=== PATIENT | male | born 1950 | race Caucasian/White ===

== ENCOUNTER 2016-06-26 07:08 | Day surgery (SDC) | payer MEDICAID ==
[2016-06-23 08:37] VITALS: BMI 36.6
[~2016-06-26 07:08] MED LIST: LACTATED RINGERS 1,000 ML IV SCH
[2016-06-26 07:24] VITALS: RESP 18; TEMP 97.8
[2016-06-26] MEDS ORDERED: LACTATED RINGERS 1,000 ML IV ONE (07:27)
[2016-06-26] MEDS ORDERED: PROPOFOL 10 MG/ML 20 ML VIAL IV ONE (07:51)
--- NOTE | 2016-06-26 08:18 | P.PCN ---
Date of Procedure: 06/26/16 Procedure(s) Performed: Procedure: Colonoscopy and biopsy. Preoperative diagnosis: Screening for neoplasia. Postoperative diagnosis: 1. Diminutive polyp right colon biopsied but no other polyps or tumors seen. 2. Sigmoid diverticulosis with no evidence of acute diverticulitis or strictures. Preparation: HalfLytely prep. Sedation: Was provided by anesthesia. Brief clinical history: The patient is a 66-year-old male who is referred for this evaluation for screening for neoplasia. He has no abdominal complaints, bleeding or anemia. No family history of colon cancer. His last colonoscopy was around 12 years ago. Procedure: With the patient on his left lateral decubitus position and after informed consent and adequate sedation, the perianal area was inspected and it did not show any fissures or fistulas. There were no masses felt on digital rectal examination. The Olympus CFQ 160L video colonoscope was then inserted in the rectum in the usual fashion and advanced to the cecum. The preparation was less than ideal as there was some solid fecal debris and small fecal material that could not be suctioned totally. The mucosa appeared healthy. There was a diminutive polyp in the proximal right colon which I biopsied but there were no large polyps or tumors. Multiple diverticular orifices were seen scattered in the sigmoid with no evidence of acute diverticulitis or strictures. I retroflexed the endoscope in the rectum before the endoscope was withdrawn. Low-grade internal hemorrhoids were noted but there was no bleeding. The patient tolerated the procedure well. Plan: The patient was reassured. Discussed dietary measures. In light of his less than ideal preparation and the finding of a diminutive polyp on the right colon, I recommended repeat exam in 5 years. He will follow up with you as planned.
[2016-06-26 08:54] VITALS: BP 149/102; PULSE 40
== END 2016-06-26 09:18 | disposition home or self-care (01) ==
LOC: ORWHC2ENDO 07:08
DX: Z12.11 Encounter for screening for malignant neoplasm of colon (principal); D12.2 Benign neoplasm of ascending colon; K57.30 Diverticulosis of large intestine without perforation or abscess without bleeding; K64.8 Other hemorrhoids; I10 Essential (primary) hypertension; Z79.82 Long term (current) use of aspirin; Z79.899 Other long term (current) drug therapy
CPT/HCPCS: 88305; 45380; J2704

== ENCOUNTER → 2016-11-16 | Outpatient (CLI) | payer MEDICAID ==
[2016-11-16 07:50] LABS: Appearance,Urine Clear (Clear); Bilirubin,Urine Negative (Negative); Glucose,Urine (UA) Negative (Negative); Ketones,Urine Negative (Negative); Leukocyte Esterase,Urine Negative (Negative); Nitrite,Urine Negative (Negative); PH, Urine 6.5 (5.0-8.0); Protein,Urine Negative (Negative); Specific Gravity,Urine 1.006 (1.001-1.035); UA Billing (MACRO vs. MICRO) CHEM; Urobilinogen,Urine <2.0 mg/dL (<2.0)
[2016-11-16 07:51] LABS: Basophils % (A) 0 %; CH 32.8; CHCM 34.3; Eosinophils # (A) 0.1 k/uL (0-0.7); Eosinophils % (A) 2 %; HCT 45.1 % (39.0-53.0); HDW 2.66; HGB 14.9 gm/dL (13.0-17.5); Luc # (Auto) 0.09; Luc % (Auto) 2; Lymphocytes # (A) 1.1 k/uL (1.0-4.8); Lymphocytes % (A) 20 %; MCH 31.6 pg (25.0-35.0); MCHC 32.9 g/dL (31.0-37.0); Monocytes # (A) 0.4 k/uL (0-1.0); Monocytes % (A) 7 %; Neutrophils # (A) 3.9 k/uL (1.3-7.7); Neutrophils % (A) 70 %; WBC 5.6 k/uL (3.8-10.6); WBC (Perox) 5.89
[2016-11-16 12:27] LABS: Hemoglobin A1C 5.2 % (4.2-6.1)
[2016-11-16 14:10] LABS: ALT 34 U/L (21-72); AST 27 U/L (17-59); Alkaline Phosphatase 86 U/L (38-126); Anion Gap 12 mmol/L; Blood Urea Nitrogen 16 mg/dL (9-20); Calcium 9.2 mg/dL (8.4-10.2); Carbon Dioxide 22 mmol/L (22-30); Chloride 109 mmol/L (98-107); Cholesterol 143 mg/dL (<200); Creatine Kinase 193 U/L (55-170); Glucose 106 mg/dL (74-99); HDL Cholesterol 35 mg/dL (40-60); Non-African American GFR(MDRD) >60 (>60 ml/min/1.73 sqM); Sodium 143 mmol/L (137-145); Total Bilirubin 0.6 mg/dL (0.2-1.3); Total Protein 6.5 g/dL (6.3-8.2)
[2016-11-16 14:41] LABS: Prostate Specific Antigen 0.27 ng/mL (0.00-4.00)
== END | disposition home or self-care (01) ==
LOC: LABWHC1 07:21
PROVIDERS: ATTEND Internal Medicine
DX: I10 Essential (primary) hypertension (principal); E78.00 Pure hypercholesterolemia, unspecified; E66.9 Obesity, unspecified; N40.0 Benign prostatic hyperplasia without lower urinary tract symptoms
CPT/HCPCS: 36415; 80053; 80061; 81003; 82550; 83036; 84153; 84439; 84443; 84550; 85025

== ENCOUNTER → 2018-04-19 | Outpatient (CLI) | payer MEDICARE ==
[2018-04-19 09:36] LABS: Basophils % (A) 0 %; Eosinophils # (A) 0.1 k/uL (0-0.7); Eosinophils % (A) 2 %; HCT 45.6 % (39.0-53.0); HGB 15.3 gm/dL (13.0-17.5); Lymphocytes # (A) 0.9 k/uL (1.0-4.8); Lymphocytes % (A) 16 %; MCH 31.6 pg (25.0-35.0); MCHC 33.5 g/dL (31.0-37.0); MCV 94.4 fL (80.0-100.0); Mean Platelet Volume 8.8; Monocytes # (A) 0.6 k/uL (0-1.0); Monocytes % (A) 11 %; Neutrophils # (A) 3.9 k/uL (1.3-7.7); Neutrophils % (A) 69 %; Platelet Count 156 k/uL (150-450); RBC 4.83 m/uL (4.30-5.90); RDW 13.3 % (11.5-15.5); WBC 5.6 k/uL (3.8-10.6)
[2018-04-19 16:27] LABS: Albumin 4.3 g/dL (3.80-4.90); Albumin/Globulin Ratio 1.87 (1.20-2.10); Anion Gap 9.3 mmol/L (4.00-12.00); Calcium 9.1 mg/dL (8.7-10.3); Carbon Dioxide 25.7 mmol/L (21.6-31.8); Globulin 2.3 g/dL (1.6-3.3); LDL Cholesterol,Calculated 127.4 mg/dL (0.0-131.0); Potassium 4.3 mmol/L (3.5-5.5); Total Bilirubin 0.8 mg/dL (0.2-1.2); Total Protein 6.6 g/dL (6.2-8.2); Uric Acid 6.5 mg/dL (3.7-8.7); VLDL Calculation 15.6 mg/dL (5.00-40.00)
[2018-04-19 16:34] LABS: T4, Free (Free Thyroxine) 1.2 ng/dL (0.80-1.80)
[2018-04-19 17:37] LABS: Hemoglobin A1C 5.1 % (4.0-6.0)
== END | disposition home or self-care (01) ==
LOC: LABWHC1 09:09
PROVIDERS: ATTEND Nurse Practitioner Family
DX: Z00.00 Encounter for general adult medical examination without abnormal findings (principal); I10 Essential (primary) hypertension; R73.9 Hyperglycemia, unspecified; N40.1 Benign prostatic hyperplasia with lower urinary tract symptoms; E78.00 Pure hypercholesterolemia, unspecified
CPT/HCPCS: 36415; 80053; 80061; 83036; 84153; 84439; 84443; 84550; 85025

== ENCOUNTER → 2018-04-24 | Outpatient (CLI) | payer MEDICARE, OTHER ==
--- NOTE | 2018-04-24 10:53 | US ---
EXAMINATION TYPE: US scrotum with doppler. Grayscale and color Doppler Duplex imaging performed of t jay jay scrotum. DATE OF EXAM: 04/24/2018 COMPARISON: NONE CLINICAL HISTORY: I77.810 Thoracic aortic ectasia, D29.22 Benign. swollen right testicle, no pain EXAM MEASUREMENTS: TESTICLES: Right Testicle: 4.4 x 3.3 x 2.7 cm Left Testicle: 4.7 x 3.3 x 2.9 cm EPIDIDYMIS HEAD: Right Epididymis: Not seen due to fluid collection obscuring anatomy Left Epididymis: 1.5 cm Doppler performed to assess for testicular vascularity; good bilateral color flow and waveforms are s een. There is no evidence of testicular torsion. Presence of hydroceles: YES, extensive bilateral loculated fluid collections Presence of varicoceles: no Unable to image testicles side by side due to extensive loculated fluid collections. IMPRESSION: 1. Extensive loculated fluid collections/hydroceles are noted bilaterally.
--- NOTE | 2018-04-24 11:28 | CT ---
EXAMINATION TYPE: CT angio chest DATE OF EXAM: 04/24/2018 COMPARISON: 11/26/2011 HISTORY: 68-year-old male Thoracic aortic ectasia. Family history of aneurysm. TECHNIQUE: Contiguous axial scanning of the chest performed with IV Contrast, patient injected with 1 00 mL of Isovue 370. Coronal/sagittal MIP reconstructions performed. 3-D reconstructions generated on a dedicated independent workstation. CT DLP: 762 mGycm Automated exposure control for dose reduction was used. FINDINGS: Heart upper limits of normal in size without pericardial effusion. Extensive coronary vessel calcific ations are present. Aortic root measures 4.4 cm versus approximately 4.2 cm in 2012. Ascending aorta measures 4.6 cm versus 4.4 cm in 2012. Proximal arch measures 4.4 cm. Mild atherosclerotic arch calcifications with bovine configuration to the aortic arch. Small 8 mm diverticulum at the origin of what appears to be the bronchial artery. This seems to have been present on the 2011 exam in retrospect. Upper descending thoracic aorta measures 3.2 cm versus 3.2 cm, previously. Lower descending thoracic aorta is ectatic at 2.8 cm versus 2.7 cm, previously. Aorta at the thoracoabdominal junction is ectatic at 2.9 cm versus 2.8 cm, previously. There is a separate origin of the common hepatic artery from the aorta. Additionally, accessory right renal artery is noted. Right and left main pulmonary arteries measure 3.0 and 2.7 cm, respectively. No thoracic lymphadenopathy by CT size criteria. Evaluation of the lungs shows mild diffuse bronchial wall thickening. Subpleural strandy opacity jose alfredo pheral right midlung has increased in the interval suggesting scarring or atelectasis. Stable 7 mm anterior right midlung pulmonary nodule, axial image 61. No consolidation or pleural effu cheikh. Mild diffuse low-density thickening of the bilateral adrenal glands without discrete nodularity. Bones: Scattered small endplate Schmorl's nodes mid to lower thoracic spine. Fatty matrix hemangioma within the T9 vertebral body. No osseous structure process. IMPRESSION: 1. THORACIC AORTIC ANEURYSM (AORTIC ROOT 4.4 CM VERSUS 4.2 CM IN 2012, ASCENDING 4.6 CM VERSUS 4.4 CM , PROXIMAL ARCH 4.4 CM, UPPER DESCENDING 3.2 CM STABLE). 2. ADDITIONAL ECTASIA LOWER DESCENDING THORACIC AORTA UP TO 2.9 CM. INCIDENTAL 8 MM DIVERTICULUM AT T HE ORIGIN OF THE BRONCHIAL ARTERY WAS PRESENT IN 2011. 3. CAD AND PULMONARY ARTERIAL HYPERTENSION. 4. MILD DIFFUSE BRONCHIAL WALL THICKENING SUGGESTS BRONCHITIS OR ASTHMA. 7 MM RIGHT MID LUNG PULMONAR Y NODULE IS STABLE AND BENIGN.
== END ==
LOC: RADUSWWP 09:41
PROVIDERS: ATTEND Internal Medicine
DX: N43.3 Hydrocele, unspecified (principal); I77.810 Thoracic aortic ectasia; I71.2 Thoracic aortic aneurysm, without rupture; I25.10 Atherosclerotic heart disease of native coronary artery without angina pectoris; I27.21 Secondary pulmonary arterial hypertension; R91.1 Solitary pulmonary nodule
CPT/HCPCS: 93975; 76870; 71275; Q9967

== ENCOUNTER → 2018-07-05 | Outpatient (CLI) | payer MEDICARE, OTHER | END | disposition home or self-care (01) | LOC: LABWHC1 09:00 | PROVIDERS: ATTEND Internal Medicine Interventional Cardiology | DX: E78.2 Mixed hyperlipidemia (principal) | CPT/HCPCS: 36415; 80061; 84450; 84460 ==

== ENCOUNTER → 2018-11-18 | Outpatient (CLI) | payer MEDICARE, OTHER ==
[2018-11-18 08:33] LABS: Basophils % (A) 0 %; Eosinophils # (A) 0.1 k/uL (0-0.7); Eosinophils % (A) 2 %; HCT 43.7 % (39.0-53.0); HGB 14.7 gm/dL (13.0-17.5); Lymphocytes # (A) 1.1 k/uL (1.0-4.8); Lymphocytes % (A) 19 %; MCH 31.3 pg (25.0-35.0); MCHC 33.7 g/dL (31.0-37.0); Mean Platelet Volume 8.6; Monocytes # (A) 0.4 k/uL (0-1.0); Monocytes % (A) 7 %; Neutrophils # (A) 4.1 k/uL (1.3-7.7); Neutrophils % (A) 70 %; Platelet Count 150 k/uL (150-450); RDW 15.1 % (11.5-15.5); WBC 5.8 k/uL (3.8-10.6)
[2018-11-18 08:35] LABS: African American GFR (CKD) >90 (>60 ml/min/1.73 sqM); Albumin 3.9 g/dL (3.5-5.0); Anion Gap 7 mmol/L; Blood Urea Nitrogen 21 mg/dL (9-20); Calcium 8.8 mg/dL (8.4-10.2); Carbon Dioxide 25 mmol/L (22-30); Chloride 111 mmol/L (98-107); Glucose 113 mg/dL (74-99); Non-African American GFR(CKD) >90 (>60 ml/min/1.73 sqM); Sodium 143 mmol/L (137-145); Total Bilirubin 0.9 mg/dL (0.2-1.3); Total Protein 6.8 g/dL (6.3-8.2)
[2018-11-18 08:51] LABS: ALT 31 U/L (21-72); AST 37 U/L (17-59); Alkaline Phosphatase 67 U/L (38-126); Magnesium 2.1 mg/dL (1.6-2.3); Potassium 4.4 mmol/L (3.5-5.1)
--- NOTE | 2018-11-18 10:47 | CT ---
EXAMINATION TYPE: CT angio chest DATE OF EXAM: 11/18/2018 COMPARISON: 04/24/2018 HISTORY: Thoracic aortic aneurysm, without rupture CT DLP: 749.9 mGycm, Automated exposure control for dose reduction was used. CONTRAST: Performed injected with 100 mL of Isovue 370. TECHNIQUE: Axial images were obtained at 5 mm thick sections. Reconstructed images are reviewed on Handy computer in the coronal plane. FINDINGS: Portion of the thyroid visualized is normal. There is an area of pleural thickening along the right upper lateral chest measuring 1.0 cm. Series 5 image 24. There is a nodule at the same level measuring 0.5 cm. No enlarged mediastinal or hilar adenopathy is evident. The ascending aorta diameter at the level o f the main pulmonary artery is 4.8 cm. The main pulmonary artery diameter at the bifurcation is 2.7 cm. Artery calcification is present. The aortic arch transverse dimension is 2.7 cm. The descending thoracic aorta measures 3.2 cm. At the level of the diaphragm the aorta measures 2.[address] sections are obtained through the upper abdomen. Abdomen is essentially unremarkable. IMPRESSIONS: 1. Aneurysmal dilatation of the ascending aorta measuring 4.8 cm at the level of the main pulmonary a rtery. 2. 0.5 cm nodule right upper lobe, stable
[2018-11-18 19:32] LABS: Hemoglobin A1C 5.5 % (4.0-6.0)
== END | disposition home or self-care (01) ==
LOC: RADCTMAIN 07:41
PROVIDERS: ATTEND Surgery
DX: I71.2 Thoracic aortic aneurysm, without rupture (principal); R91.1 Solitary pulmonary nodule
CPT/HCPCS: 84439; 80061; 80053; 83735; 84443; 85025; 83036; 71275; 36415; Q9967

== ENCOUNTER → 2019-04-24 | Outpatient (CLI) | payer MEDICARE, OTHER ==
[2019-04-24 09:46] LABS: Basophils % (A) 0 %; Eosinophils # (A) 0.1 k/uL (0-0.7); Eosinophils % (A) 2 %; HCT 43.3 % (39.0-53.0); HGB 14.2 gm/dL (13.0-17.5); Lymphocytes # (A) 1.1 k/uL (1.0-4.8); Lymphocytes % (A) 20 %; MCH 31.1 pg (25.0-35.0); MCHC 32.8 g/dL (31.0-37.0); MCV 94.6 fL (80.0-100.0); Mean Platelet Volume 9.3; Monocytes # (A) 0.4 k/uL (0-1.0); Monocytes % (A) 8 %; Neutrophils # (A) 3.7 k/uL (1.3-7.7); Neutrophils % (A) 69 %; Platelet Count 151 k/uL (150-450); RBC 4.58 m/uL (4.30-5.90); RDW 12.7 % (11.5-15.5); WBC 5.4 k/uL (3.8-10.6)
[2019-04-24 09:54] LABS: Appearance,Urine Clear (Clear); Bilirubin,Urine Negative (Negative); Blood,Urine Negative (Negative); Color,Urine Yellow; Glucose,Urine (UA) Negative (Negative); Ketones,Urine Negative (Negative); Leukocyte Esterase,Urine Negative (Negative); Nitrite,Urine Negative (Negative); Protein,Urine Negative (Negative); Urobilinogen,Urine <2.0 mg/dL (<2.0)
[2019-04-24 16:38] LABS: African American GFR (CKD) 107.1 (60.0-200.0); Albumin 4.2 g/dL (3.80-4.90); Albumin/Globulin Ratio 2.21 (1.60-3.17); Anion Gap 5.6 mmol/L (4.00-12.00); Carbon Dioxide 27.4 mmol/L (21.6-31.8); Chol/HDL Ratio 2.94; Globulin 1.9 g/dL (1.6-3.3); LDL Cholesterol,Calculated 53.8 mg/dL (0.0-131.0); Magnesium 1.9 mg/dL (1.5-2.4); Non-African American GFR(CKD) 92.4 (60.0-200.0); Potassium 3.9 mmol/L (3.5-5.5); Total Bilirubin 0.9 mg/dL (0.3-1.2); Total Protein 6.1 g/dL (6.2-8.2); Uric Acid 4.9 mg/dL (3.7-8.7); VLDL Calculation 14.2 mg/dL (5.00-40.00)
[2019-04-24 16:46] LABS: T4, Free (Free Thyroxine) 1.3 ng/dL (0.80-1.80)
[2019-04-24 19:08] LABS: Hemoglobin A1C 5.2 % (4.0-6.0)
== END | disposition home or self-care (01) ==
LOC: LABWHC1 09:05
PROVIDERS: ATTEND Internal Medicine
DX: I10 Essential (primary) hypertension (principal); N40.0 Benign prostatic hyperplasia without lower urinary tract symptoms; E78.5 Hyperlipidemia, unspecified
CPT/HCPCS: 36415; 80053; 80061; 81003; 82550; 83036; 83735; 84153; 84439; 84443; 84550; 85025

== ENCOUNTER → 2019-10-27 | Outpatient (CLI) | payer MEDICARE, OTHER ==
[2019-10-27 09:24] LABS: Basophils % (A) 0 %; Eosinophils # (A) 0.1 k/uL (0-0.7); Eosinophils % (A) 2 %; HCT 42.8 % (39.0-53.0); HGB 13.7 gm/dL (13.0-17.5); Lymphocytes # (A) 1.2 k/uL (1.0-4.8); Lymphocytes % (A) 19 %; MCH 30.6 pg (25.0-35.0); MCHC 32.1 g/dL (31.0-37.0); MCV 95.5 fL (80.0-100.0); Mean Platelet Volume 8.6; Monocytes # (A) 0.4 k/uL (0-1.0); Monocytes % (A) 7 %; Neutrophils # (A) 4.5 k/uL (1.3-7.7); Neutrophils % (A) 70 %; Platelet Count 155 k/uL (150-450); RBC 4.48 m/uL (4.30-5.90); WBC 6.3 k/uL (3.8-10.6)
[2019-10-27 20:32] LABS: African American GFR (CKD) 102.1 (60.0-200.0); Albumin/Globulin Ratio 1.74 (1.60-3.17); BUN/Creat Ratio 25.56 Ratio (12.00-20.00); Calcium 8.7 mg/dL (8.7-10.3); Chol/HDL Ratio 2.63; Globulin 2.3 g/dL (1.6-3.3); LDL Cholesterol,Calculated 46.2 mg/dL (0.0-131.0); Non-African American GFR(CKD) 88.1 (60.0-200.0); Potassium 4.4 mmol/L (3.5-5.5); Total Bilirubin 0.7 mg/dL (0.2-1.2); Total Protein 6.3 g/dL (6.2-8.2); VLDL Calculation 10.8 mg/dL (5.00-40.00)
== END ==
LOC: LABWHC1 08:15
PROVIDERS: ATTEND Internal Medicine
DX: I10 Essential (primary) hypertension (principal); E78.2 Mixed hyperlipidemia
CPT/HCPCS: 36415; 80053; 80061; 84443; 85025

== ENCOUNTER → 2019-11-11 | Outpatient (CLI) | payer MEDICARE, OTHER ==
[2019-11-11 09:27] LABS: African American GFR (CKD) >90 (>60 ml/min/1.73 sqM); Blood Urea Nitrogen 26 mg/dL (9-20); Non-African American GFR(CKD) >90 (>60 ml/min/1.73 sqM)
--- NOTE | 2019-11-11 12:43 | CT ---
EXAMINATION TYPE: CT angio chest DATE OF EXAM: 11/11/2019 COMPARISON: CTA chest November 18, 2018. HISTORY: Thoracic aortic aneurysm CT DLP: 1360 mGycm. Automated Exposure Control for Dose Reduction was Utilized. CONTRAST: CTA scan of the thorax is performed without and with IV Contrast, patient injected with 100 ml mL of Isovue 370, aneurysm protocol. 3-D reconstructed Images are created on independent workstation and r eviewed. FINDINGS: LUNGS: The lungs are grossly clear, there is no new concerning parenchymal mass or nodule identified. Stable 7 x 5 mm nodule anteromedial right upper lung axial image 23. There is no new pleural effusi on or pneumothorax seen bilaterally. The tracheobronchial tree is patent. MEDIASTINUM: There is persist ascending aortic aneurysm measuring up to 4.5 cm axial image 23 no sign ificant change from last 2 studies. Bovine type aortic arch redemonstrated with mild calcified plaque . Some tortuous course to the distal thoracic aorta without aneurysmal extension. Accessory right re nal artery redemonstrated There are no new greater than 1 cm hilar or mediastinal lymph nodes. No c ardiomegaly or pericardial effusion is seen. Severe three-vessel Coronary artery calcification is aga in seen. OTHER: Stable low dense thickening to both adrenal glands consistent with benign lipid rich hyperplas ia. Persistent hemangioma involving T9 vertebra. IMPRESSION: Stable 4.5 cm ascending aortic aneurysm.
== END | disposition home or self-care (01) ==
LOC: RADCTMAIN 08:44
PROVIDERS: ATTEND Surgery
DX: I71.2 Thoracic aortic aneurysm, without rupture (principal)
CPT/HCPCS: 82565; 84520; 71275; 36415; Q9967

== ENCOUNTER → 2020-07-13 | Outpatient (CLI) | payer MEDICARE ==
[2020-07-13 19:07] LABS: African American GFR (CKD) 112.4 (60.0-200.0); Albumin 4.2 g/dL (3.80-4.90); Albumin/Globulin Ratio 2.21 (1.60-3.17); Anion Gap 9.2 mmol/L (4.00-12.00); Calcium 8.9 mg/dL (8.7-10.3); Carbon Dioxide 22.8 mmol/L (21.6-31.8); Chol/HDL Ratio 3.06; Globulin 1.9 g/dL (1.6-3.3); Potassium 3.8 mmol/L (3.5-5.5); Total Bilirubin 0.8 mg/dL (0.3-1.2); Total Protein 6.1 g/dL (6.2-8.2)
== END | disposition home or self-care (01) ==
LOC: LABWHC1 08:02
PROVIDERS: ATTEND Internal Medicine Interventional Cardiology
DX: E78.2 Mixed hyperlipidemia (principal)
CPT/HCPCS: 36415; 80053; 80061

== ENCOUNTER → 2020-11-24 | Outpatient (CLI) | payer MEDICARE ==
[2020-11-24 11:58] LABS: African American GFR (CKD) >90 (>60 ml/min/1.73 sqM); Blood Urea Nitrogen 18 mg/dL (9-20); Non-African American GFR(CKD) >90 (>60 ml/min/1.73 sqM)
--- NOTE | 2020-11-24 13:53 | CT ---
EXAMINATION TYPE: CT angio chest DATE OF EXAM: 11/24/2020 COMPARISON: 11/11/2019 HISTORY: 70-year-old male I71.2, follow up thoracic aortic aneurysm TECHNIQUE: Contiguous axial scanning of the chest performed without and with IV Contrast, patient inj ected with 100 mL of Isovue 370. Initial noncontrast images through the aortic arch. Coronal/sagittal MIP reconstructions performed. 3-D reconstructions generated on a dedicated independent workstation. CT DLP: 1087.5 mGycm Automated exposure control for dose reduction was used. FINDINGS: Heart normal size without pericardial effusion. Three-vessel coronary artery calcifications are prese nt and are unremarkable for coronary artery disease. Aneurysmal aortic root at 4.6 cm, unchanged. Aneurysmal ascending aorta 4.7 cm, unchanged. Aneurysmal proximal arch at 4.5 cm, unchanged. Bovine configuration to the aortic arch with mild atherosclerotic calcifications. Ectatic upper descending thoracic aorta at 3.3 cm, unchanged. Tortuous descending thoracic aorta. Borderline aneurysmal descending thoracic aorta at the thoracoabdominal junction at 3.0 cm, unchanged . No thoracic lymphadenopathy by CT size criteria. Large caliber to the main right and left pulmonary arteries measuring up to 3.0 cm suggesting underly ing pulmonary artery hypertension. Some stable pleural parenchymal scarring periphery of the right midlung. Stable 7 mm anterior right midlung pulmonary nodule, axial image 25 suggesting a benign etiology. Some minimal strandy scar periphery of the right base. No consolidation or pleural effusion. Visualized upper abdomen shows a 1.7 cm gallstone. Bones: Old healed right-sided rib fracture deformity. Fatty matrix hemangioma within the T9 vertebral body. IMPRESSION: 1. STABLE ANEURYSMAL THORACIC AORTA (ROOT 4.6 CM, ASCENDING 4.7 CM, AND UPPER DESCENDING 3.3 CM). 2. CAD WITH 3 VESSEL CORONARY ARTERY CALCIFICATIONS. 3. CORRELATE FOR POSSIBLE UNDERLYING PULMONARY ARTERIAL HYPERTENSION. 4. A 1.7 CM GALLSTONE.
== END | disposition home or self-care (01) ==
LOC: RADCTMAIN 11:14
PROVIDERS: ATTEND Surgery
DX: I71.2 Thoracic aortic aneurysm, without rupture (principal); I25.10 Atherosclerotic heart disease of native coronary artery without angina pectoris
CPT/HCPCS: 82565; 84520; 71275; 36415; Q9967

== ENCOUNTER → 2021-01-19 | Outpatient (CLI) | payer MEDICARE ==
[2021-01-19 15:50] LABS: Chol/HDL Ratio 2.77 Ratio; HDL Cholesterol 37.9 mg/dL (40.00-60.00); LDL Cholesterol,Calculated 51.5 mg/dL (0.0-131.0); VLDL Calculation 15.6 mg/dL (5.00-40.00)
== END | disposition home or self-care (01) ==
LOC: LABWHC1 08:04
PROVIDERS: ATTEND Internal Medicine Interventional Cardiology
DX: E78.2 Mixed hyperlipidemia (principal)
CPT/HCPCS: 36415; 80061; 84450; 84460

== ENCOUNTER → 2021-07-26 | Outpatient (CLI) | payer MEDICARE, OTHER ==
[2021-07-26 14:30] LABS: ALT 26 U/L (10-49); AST 27 U/L (14-35); Chol/HDL Ratio 2.97 Ratio; LDL Cholesterol,Calculated 65.5 mg/dL (0.0-131.0); VLDL Calculation 14.82 mg/dL (5.00-40.00)
== END | disposition home or self-care (01) ==
LOC: LABWHC1 07:03
PROVIDERS: ATTEND Internal Medicine Interventional Cardiology
DX: E78.2 Mixed hyperlipidemia (principal)
CPT/HCPCS: 36415; 80061; 84450; 84460

== ENCOUNTER → 2022-07-27 | Outpatient (CLI) | payer MEDICARE ==
[2022-07-27 20:42] LABS: ALT 21 U/L (10-49); AST 21 U/L (14-35); African American GFR (CKD) 109.3 (60.0-200.0); Albumin 4.1 g/dL (3.8-4.9); Albumin/Globulin Ratio 1.87 (1.60-3.17); Alkaline Phosphatase 98 U/L (41-126); BUN/Creat Ratio 22.79 Ratio (12.00-20.00); Blood Urea Nitrogen 16.5 mg/dL (9.0-27.0); Calcium 9.2 mg/dL (8.7-10.3); Carbon Dioxide 26.5 mmol/L (20.0-27.5); Chloride 107 mmol/L (96-109); Globulin 2.2 g/dL (1.6-3.3); Glucose 112 mg/dL (70-110); LDL Cholesterol,Calculated 54.7 mg/dL (0.0-131.0); Non-African American GFR(CKD) 94.3 (60.0-200.0); Potassium 4.3 mmol/L (3.5-5.5); Sodium 144 mmol/L (135-145); Total Protein 6.3 g/dL (6.2-8.2)
== END | disposition home or self-care (01) ==
LOC: LABWHC1 08:09
PROVIDERS: ATTEND Nurse Practitioner Adult Health
DX: I10 Essential (primary) hypertension (principal); E78.2 Mixed hyperlipidemia
CPT/HCPCS: 36415; 80053; 80061

== ENCOUNTER → 2022-11-27 | Outpatient (CLI) | payer MEDICARE, OTHER ==
[2022-11-27 13:50] LABS: African American GFR (CKD) >90 (>60 ml/min/1.73 sqM); Blood Urea Nitrogen 18 mg/dL (9-20); Non-African American GFR(CKD) >90 (>60 ml/min/1.73 sqM)
--- NOTE | 2022-11-27 15:04 | CT ---
EXAMINATION TYPE: CT chest w con DATE OF EXAM: 11/27/2022 COMPARISON: 11/24/2021, 11/24/2020 HISTORY: f/u aneurysm CT DLP: 643 mGycm Automated exposure control for dose reduction was used. TECHNIQUE: CT scan of the chest is performed with IV Contrast, patient injected with 100 mL of Isovue 300. MIP Images are created on CT scanner and reviewed. 3D reconstructed images are created on an independent workstation and reviewed. FINDINGS: LUNGS: The lungs are grossly clear, there is no concerning parenchymal mass or nodule identified. T here is no pleural effusion or pneumothorax seen. The tracheobronchial tree is patent. Mild pleural- based thickening noted. As MEDIASTINUM: There are no greater than 1 cm hilar or mediastinal lymph nod es. No pericardial effusion is seen. There is a 4.7 x 4.9 cm ascending aortic aneurysm. Ectasia of the descending thoracic aorta. Variant anatomy of the celiac trunk. There is mild atherosclerotic ch anges. No evidence of dissection. Calcification aortic valve noted. Coronary artery dense calcificati on seen in there is mild cardiomegaly. OTHER: Hypertrophic and degenerative changes of the spine. A vertebral body hemangioma bilateral adr enal gland thickening. There is cholelithiasis. 1 cm right thyroid inferior nodule. IMPRESSION: 1. Ascending aortic aneurysm measuring 4.7 x 4.9 cm and previously measuring 4.6 x 4.9 cm. No signifi cant interval change. 2. Cholelithiasis. 3. Dense coronary artery calcification. 4. Right lobe thyroid nodule.
== END | disposition home or self-care (01) ==
LOC: RADCTMAIN 12:39
PROVIDERS: ATTEND Surgery
DX: I71.21 Aneurysm of the ascending aorta, without rupture (principal); K80.20 Calculus of gallbladder without cholecystitis without obstruction; I25.10 Atherosclerotic heart disease of native coronary artery without angina pectoris; E04.1 Nontoxic single thyroid nodule
CPT/HCPCS: 82565; 84520; 71260; 36415; Q9967

== ENCOUNTER → 2023-01-29 | Outpatient (CLI) | payer MEDICARE, OTHER ==
--- NOTE | 2023-01-29 10:04 | US ---
EXAMINATION TYPE: US thyroid st tissue head/neck DATE OF EXAM: 01/29/2023 COMPARISON: None CLINICAL INDICATION: Male, 73 years old with history of E04.1 THYROID NODULE; CT showed thyroid nodul e. GLAND SIZE: Right Lobe: 3.7 x 2.6 x 2.3 cm Overall Parenchyma: heterogenous Left Lobe: 3.3 x 1.4 x 1.4 cm Overall Parenchyma: heterogenous Isthmus Thickness: 0.9 cm NODULES- Suboptimal due to thyroid location and patient breathing RIGHT: # of nodules measured on right: 2 1. 2.6 X 2.0 x 2.5 cm, lower mid, Prior size: No prior TIRADS Score: 4 TIRADS Category 4: Moderately Suspicious Composition: Solid or almost completely solid (2 points). Echogenicity: Hypoechoic (2 points). Shape: Wider than tall (0 points). Margin: Smooth (0 points). Echogenic foci: None or large comet-tail artifacts (0 points) Recommendation: If >1.5cm: FNA; If >1cm: Follow up at 1,2, 3,5 years 2. 0.7 X 0.6 x 0.7 cm, upper mid, Prior size: No prior TIRADS Score: 3 TIRADS Category 3: Mildly Suspicious Composition: Solid or almost completely solid (2 points). Echogenicity: Hyperechoic or isoechoic (1 point). Shape: Wider than tall (0 points). Margin: Ill-defined (0 points). Echogenic foci: None or large comet-tail artifacts (0 points) Recommendation: If >2.5cm: FNA; If >1.5cm: Follow up at 1,3,5 years LEFT: # of nodules measured on left: 1 1. 0.8 X 0.7 x 0.6 cm, mid lateral, Prior size: No prior TIRADS Score: 3 TIRADS Category 3: Mildly Suspicious Composition: Solid or almost completely solid (2 points). Echogenicity: Hyperechoic or isoechoic (1 point). Shape: Wider than tall (0 points). Margin: Smooth (0 points). Echogenic foci: None or large comet-tail artifacts (0 points) Recommendation: If >2.5cm: FNA; If >1.5cm: Follow up at 1,3,5 years ISTHMUS: # of nodules measured in the isthmus: 0 Bilateral neck scanned, no evidence of lymphadenopathy. IMPRESSION: Bilateral thyroid nodules of which a right thyroid nodule meets criteria for needle aspiration if not already performed. Thyroid nodule #1 mentioned above.
== END | disposition home or self-care (01) ==
LOC: RADUSWWP 08:50
PROVIDERS: ATTEND Internal Medicine
DX: E04.2 Nontoxic multinodular goiter (principal)
CPT/HCPCS: 76536

== ENCOUNTER 2023-03-05 12:31 | Day surgery (SDC) | payer MEDICARE, OTHER ==
[2023-03-05 13:35] VITALS: RESP 16; TEMP 97.8
--- NOTE | 2023-03-05 14:08 | US ---
ULTRASOUND GUIDED FNA THYROID BIOPSY: CLINICAL HISTORY: Right thyroid nodule FINDINGS: The procedure was explained to the patient. The risks, complications, benefits and alternatives were discussed and any questions were answered. Informed consent was obtained. Patient was placed supin e on the ultrasound table and prepped and draped in the usual sterile fashion. Utilizing a 25 gauge needle, five passes were made into the requested right thyroid nodule. Patient was stable throughout the procedure. Pathology is pending. All elements of maximal barrier technique were utilized. IMPRESSION: 1. Successful ultrasound guided FNA thyroid biopsy.
[2023-03-05 14:22] VITALS: BP 139/71; PULSE 52
== END 2023-03-05 14:05 | disposition home or self-care (01) ==
LOC: RADPROMAIN 12:31
PROVIDERS: ATTEND Internal Medicine
DX: E04.1 Nontoxic single thyroid nodule (principal)
CPT/HCPCS: 10005; 88173; 88305

== ENCOUNTER → 2023-11-26 | Outpatient (CLI) | payer MEDICARE, OTHER ==
[2023-11-26 14:17] LABS: African American GFR (CKD) >90 (>60 ml/min/1.73 sqM); Blood Urea Nitrogen 21 mg/dL (9-20); Non-African American GFR(CKD) >90 (>60 ml/min/1.73 sqM)
--- NOTE | 2023-11-26 15:17 | CT ---
EXAMINATION TYPE: CT angio chest DATE OF EXAM: 11/26/2023 3:04 PM COMPARISON: 11/24/2021 HISTORY: f/u thoracic aortic aneurysm CT DLP: 1562.1 mGycm Automated exposure control for dose reduction was used. CONTRAST: CTA scan of the thorax is performed with IV Contrast, patient injected with 100 mL of Isovue 370, pul monary embolism protocol. . FINDINGS: There is a stable 8 mm nodule in the right upper lobe. No new or suspicious lung mass or nodule is se en. There is no abnormal airspace or interstitial density. There is no pleural effusion, pleural thickening or pneumothorax. There are stable 4.8-4.9 cm aneurysmal dilatation of the ascending thoracic aorta. There is no mediastinal, hilar or axillary adenopathy. The heart size is within normal limits. The osseous structures of the thorax are intact. Limited scanning reveals cholelithiasis but no other significant abnormality. IMPRESSION: 1. Stable 4.8-4.9 cm aneurysmal dilatation of the ascending thoracic aorta. 2. Stable 8 mm right upper lobe pulmonary nodule. 3. No acute cardiopulmonary disease. 4. Cholelithiasis
== END | disposition home or self-care (01) ==
LOC: RADCTMAIN 13:29
PROVIDERS: ATTEND Surgery
DX: I71.20 Thoracic aortic aneurysm, without rupture, unspecified
CPT/HCPCS: 36415; 71275; 82565; 84520

== ENCOUNTER 2024-03-19 07:31 | Day surgery (SDC) | payer MEDICARE, OTHER ==
[2024-03-19 07:53] VITALS: RESP 16; TEMP 97.4
[2024-03-19] MEDS: LACTATED RINGERS 1,000 ML IV SCH (08:00)
[2024-03-19] MEDS: IV FLUID CONTINUATION 1,000 ML IV ONE (08:00)
[2024-03-19] MEDS ORDERED: PROPOFOL 10 MG/ML 20 ML VIAL IV ONE (09:28)
--- NOTE | 2024-03-19 09:46 | P.PCN ---
Date of Procedure: 03/19/24 Procedure(s) Performed: BRIEF HISTORY: Patient is a 74-year-old pleasant white male scheduled for an elective colonoscopy as a part of screening for colon cancer/positive Cologuard PROCEDURE PERFORMED: Colonoscopy biopsy and snare polypectomy. PREOPERATIVE DIAGNOSIS: Screening for colon cancer/positive Cologuard. IV sedation per Anesthesia. PROCEDURE: After informed consent was obtained, the patient, was brought into the endoscopy unit. IV sedation was administered by Anesthesia under continuous monitoring. Digital rectal examination was normal. Initially the Olympus CF-160 flexible video colonoscope was then inserted in the rectum, gradually advanced into the cecum without any difficulty. Careful examination was performed as the scope was gradually being withdrawn. Ileocecal valve and the appendiceal orifice were visualized and appeared normal. Prep was excellent. Mucosa of the cecum, appeared normal. Descending colon there was a 3 mm polyp that was removed by cold biopsy. In the transverse colon there was a 5 mm sessile polyp removed by cold biopsy. Rest of the descending colon, 1. The sigmoid colon there was an 8 mm polyp removed by cold snare polypectomy. Moderate sigmoid diverticulosis seen. Rest of sigmoid colon, and rectum appeared normal. Retroflexion was performed in the rectum and no lesions were seen. The patient tolerated the procedure well. IMPRESSION: 3 mm ascending colon polyp status post cold biopsy 5 mm transverse colon polyp status post cold biopsy 8 mm sigmoid colon polyp status post cold snare polypectomy Scattered sigmoid diverticulosis RECOMMENDATIONS: Findings of this examination were discussed with the patient as well as his family. He was advised to follow-up with the biopsy results. If the biopsy reveals adenoma he can have repeat colonoscopy in 3 years..
[2024-03-19 10:18] VITALS: BP 115/77; PULSE 54
== END 2024-03-19 10:39 | disposition home or self-care (01) ==
LOC: ORWHC2ENDO 07:31
PROVIDERS: ATTEND Internal Medicine Gastroenterology
DX: D12.2 Benign neoplasm of ascending colon (principal); D12.3 Benign neoplasm of transverse colon; K57.30 Diverticulosis of large intestine without perforation or abscess without bleeding; I10 Essential (primary) hypertension; E78.5 Hyperlipidemia, unspecified; Z79.82 Long term (current) use of aspirin; Z79.02 Long term (current) use of antithrombotics/antiplatelets; Z79.899 Other long term (current) drug therapy
CPT/HCPCS: 88305; 45380; 45385; J2704